=== PATIENT | male | born 1985 ===

== ENCOUNTER 2019-07-20 05:57 | Day surgery (SDC) | payer OTHER ==
[~2019-07-20 05:57] MED LIST: FORTAMET1000 MG PO; LEVOXYL88 MCG PO; NASAL MIST126 ML; NEXIUM I.V40 MG/VIAL IV; OZEMPIC0.25 MG/0.; PROTONIX40 M1 PO; SYNTHROID200 MCG PO; TOPROL XL50 M1 PO; [UNRECOGNIZED DRUG - OTHER] PO
== END 2019-07-20 16:00 | disposition home or self-care (01) ==
LOC: CIR.AMB 05:57 → ADM 08:30 → CIR.AMB 16:00
DX: Z30.2 Encounter for sterilization (principal)